=== PATIENT | male | born 1990 | race Caucasian/White ===

== ENCOUNTER 2019-01-23 23:39 | Emergency (ER) | payer MEDICAID ==
[2019-01-23 23:55] VITALS: BP 156/89
== END 2019-01-24 00:08 | disposition home or self-care (01) ==
LOC: ER 23:40
DX: Z02.89 Encounter for other administrative examinations (principal); R19.7 Diarrhea, unspecified; R09.89 Other specified symptoms and signs involving the circulatory and respiratory systems
CPT/HCPCS: 99281

== ENCOUNTER 2019-05-12 01:04 | Emergency (ER) | payer MEDICAID ==
[~2019-05-12] VITALS: Ht 170.2 cm; Wt 68.0 kg
[2019-05-12 01:34] VITALS: BP 124/68
--- NOTE | 2019-05-12 02:05 | NUR ---
ASKED PT SIGNIFICANT OTHER NOT TO LAY IN BED WITH PATIENT .
--- NOTE | 2019-05-12 02:17 | NUR ---
PT LEFT UNIT AFTER ASKING SIGNIFICANT OTHER TO NOT LAY IN HOSPITAL BED WITH PATIENT. REGISTRATION NOTIFIED CHRAGE NURSE OF THEIR DEPARTURE. PT AND PT SIGNIFICANT OTHER, WERE VERY FRIENDLY AND COMPLINAT WHEN INITITALLY ASKED FOR THEM BOTH NOT TO LAY IN BED. THEY DID NOT VERBALIZE DISCONTENT OR HAVE BODY LANGUAGE THAT APPEARS THEY WERE UNHAPPY WITH THE CARE PT WAS RECIEVING
== END 2019-05-12 02:17 | disposition left against medical advice (07) ==
LOC: ER 01:04
DX: Z02.89 Encounter for other administrative examinations (principal); Z53.21 Procedure and treatment not carried out due to patient leaving prior to being seen by health care provider